=== PATIENT | male | born 1945 | race African-American/Black ===

== ENCOUNTER 2016-05-15 19:33 | Inpatient (IN) | payer MEDICARE ==
[2016-05-15] MEDS ORDERED: Sodium Chloride 0.9% 1,000 ML ONE (20:40)
[2016-05-15 20:44] LABS: Anion Gap 14 mmol/L (10-20); BUN (Urea Nitrogen) 17 mg/dL (8.4-25.7); Calc. Creatinine Clearance 0 mL/min (70-130); Calcium 9.5 mg/dL (7.8-10.44); Carbon Dioxide 23 mmol/L (23-31); Chloride 102 mmol/L (98-107); Estimated GFR-MDRD 85
--- NOTE | 2016-05-15 21:04 | RAD ---
PA AND LATERAL OF THE CHEST 05/15/16 INDICATION: Runny nose and cough with fever. IMPRESSION: Some limitation to the exam - see comments. No definite acute cardiopulmonary abnormality. Hyperexpansion of the lungs with interstitial prominence likely reflecting changes of COPD. Calcified granuloma of the right upper lobe. COMMENTS: There is surgical clips within the upper abdomen. Left costophrenic angle is excluded. POS: [id number]
[2016-05-15 21:13] LABS: Lactic Acid - Sepsis 1.9 mmol/L (0.5-2.2)
[2016-05-15 21:16] LABS: Hematocrit 40.4 % (42.0-52.0); Red Blood Cell (RBC) Count 4.99 mill/uL (4.70-6.10)
[2016-05-15 21:20] LABS: Band 1 % (5-11); Neutrophil 78 % (42-75)
[2016-05-15] MEDS ORDERED: Sodium Chloride 0.9% 100 ML ONE ×2 (21:22)
[2016-05-15] MEDS ORDERED: cefTRIAXone\\ROCEPHIN 1 GM VIAL ONE (21:22)
[2016-05-15 21:50] LABS: Bilirubin Negative (Negative); Blood, Urine Trace (Negative); Glucose, Urine (Dipstick) Negative (Negative); Ketone, Urine Negative (Negative); Nitrite Negative (Negative); Protein, Urine (Dipstick) Negative (Neg-Trace); Urobilinogen 0.2 mg/dL (0.2-1.0)
[2016-05-15 22:04] LABS: Bacteria/HPF None Seen HPF (None Seen); RBC/HPF None Seen HPF (0-3); Squamous Epithelial 0-3 HPF (0-3)
--- NOTE | 2016-05-15 22:35 | PICIS ---
[facility] EMERGENCY RECORD TRIAGE (19:44 MBOS) TRIAGE NOTES: fever, weakness. (19:44 MBOS) PATIENT: NAME: Hossein Velasco, AGE: 70, GENDER: male, : Tue1945, TIME OF GREET: Sat May 15, 2016 19:35, PREFERRED LANGUAGE: Chinese, ETHNICITY: Not or , ECODE BILLING MAP: [facility] ER, SSN: [id number], Zip Code: [address], KG WEIGHT: 68.04, PHONE: , , , PERSON ID: [id number], PCP: Tana IRWIN POLLACHI. (19:44 MBOS) COMPLAINT: WEAKNESS; FEVER. (19:44 MBOS) ADMISSION: URGENCY: 3 Urgent, ADMISSION SOURCE: Home, TRANSPORT: CAR, BED: ER -04. (19:44 MBOS) ASSESSMENT: Assessment: weakness x2 days, fever started today. (19:48 MBOS) PAIN: No complaint of pain. (19:48 MBOS) IMMUNIZATIONS: Flu vaccine not up to date, Tetanus not up to date, Pneumococcal vaccine not up to date. (19:48 MBOS) SIRS SCORING: Heart Rate 55-109 (0), Temp range 96.8-101.1 (0), respiratory rate 12-24 (0), Mental Status altered: no (0). (19:48 MBOS) PROVIDERS: TRIAGE NURSE: Carmelita Pozo RN. (19:44 MBOS) VITAL SIGNS: BP 96/57, Pulse 84, Resp 19, Temp 100.2, (Oral), Pain 0, O2 Sat 97, Time 05/15/2016 19:43. (19:43 MBOS) KNOWN ALLERGIES none CURRENT MEDICATIONS hydrochlorothiazide: TABLET : Strength - 12.5 mg : ORAL Patient Dose: Unknown. (22:15 MBOS) amlodipine-benazepril: CAPSULE : Strength - 5 mg-20 mg : ORAL Patient Dose: Unknown. (22:16 MBOS) ferrous sulfate: TABLET : Strength - 325 mg (65 mg iron) : ORAL Patient Dose: Unknown. (22:16 MBOS) atorvastatin: TABLET : Strength - 20 mg : ORAL Patient Dose: Unknown. (22:16 MBOS) clopidogrel: TABLET : Strength - 75 mg : ORAL Patient Dose: Unknown. (22:16 MBOS) VITAL SIGNS VITAL SIGNS: BP: 96/57, Pulse: 84, Resp: 19, Temp: 100.2 (Oral), Pain: 0, O2 sat: 97, Time: 05/15/2016 19:43. (19:43 MBOS) BP: 113/65, Pulse: 78, Resp: 12, O2 sat: 98 on Room Air, Time: 05/15/2016 20:24. (20:24 MBOS) &a-1R&a+25V*p+0X*[id number]*c202B*c15G*c2P*p-0X&a-25V&a+1R Name: Hossein Velasco : 1945 M70 MedRec: [id number] AcctNum: [id number] Prepared: Sat May 15, 2016 23:03 by Interface Page 1 of 12 pMD [facility] EMERGENCY RECORD BP: 107/58, Pulse: 69, Resp: 17, O2 sat: 98, Time: 05/15/2016 22:03. (22:03 MBOS) BP: 126/76, Pulse: 76, Resp: 15, Temp: 98.2 (Tympanic), Pain: 0, O2 sat: 95 on Room Air, Time: 05/15/2016 22:29. (22:29 MBOS) NURSING ASSESSMENT: FALL RISK (22:25 MBOS) FALL RISK: Impaired mobility (3), Elimination problems (3), Total score 6, Fall risk. NURSING ASSESSMENT: HEAD-TO-TOE (21:50 MBOS) CONSTITUTIONAL: Patient arrives, via hospital wheelchair, Unsteady gait, Assistance to cart, History obtained from patient, Patient appears comfortable, Patient cooperative, Patient alert, Oriented to person, place and time, Skin warm, Skin dry, Skin normal in color, Mucous membranes pink, Mucous membranes moist, Patient is well-groomed, Patient complains of fever, weakness. PAIN: Patient rates pain as 0 out of 10. NEURO: Pupils equally round and reactive to light, Able to close eyes, Face symmetrical, Speech normal. RESPIRATORY/CHEST: Breath sounds clear, Respiratory assessment findings include respiratory effort easy, Respirations regular, Conversing normally, Neck and chest exam findings include trachea midline, Chest expansion equal, Chest movement symmetrical, Associated with fever, Maximum temperature 104.7, oral. CARDIOVASCULAR: Cardiovascular assessment findings include heart rate normal, Heart sounds normal. SAFETY: Side rails up, Cart/Stretcher in lowest position, Family at bedside, Call light within reach, Hospital ID band on. NURSING ASSESSMENT: SKIN (22:23 MBOS) SKIN: Skin assessment findings include skin warm, Skin dry, Skin normal in color, Inspection findings include: No pressure ulcer to the shoulder, Inspection findings include no pressure ulcer to the elbow, Inspection findings include no pressure ulcers to the hip, Inspection findings include no pressure ulcer to the sacrum, Inspection findings include no pressure ulcer to the heel, Inspection findings include no pressure ulcer, Inspection findings include no pressure ulcer. SAFETY: Side rails up, Cart/Stretcher in lowest position, Family at bedside, Call light within reach, Hospital ID band on. NURSING PROCEDURE: ADMISSION (22:51 MBOS) ADMISSION: Patient admitted to a telemetry unit, room number 141, Report called to, DOMO Roblero, Provided opportunity to answer questions, Admission orders received and completed, Transported via cart/stretcher, Accompanied by registered nurse, Transported with disposable blood pressure cuff, Transported with saline lock. SAFETY: Side rails up, Cart/Stretcher in lowest position, Family &a-1R&a+25V*p+0X*[id number]*c202B*c15G*c2P*p-0X&a-25V&a+1R Name: Hossein Velasco : 1945 M70 MedRec: [id number] AcctNum: [id number] Prepared: Sat May 15, 2016 23:03 by Interface Page 2 of 12 pMD [facility] EMERGENCY RECORD at bedside, Call light within reach, Hospital ID band on. NURSING PROCEDURE: BEDSIDE SIRS TESTING (22:24 MBOS) SCORES: Heart Rate 55-109 (0), Temp range 96.8-101.1 (0), respiratory rate 12-24 (0), Latest WBC 3-14.9 (0), Mental Status altered: no (0), Yes, Infection or Suspected Infection. NURSING PROCEDURE: ASSOCIATE BROKER (19:45 MBOS) PATIENT IDENTIFIER: Patient actively involved in identification process, Patient's identity verified by patient stating name, Patient's identity verified by patient stating date, Patient's identity verified by hospital ID bracelet. ASSOCIATE BROKER: Cardiac monitoring indicated for weakness, fever, Patient placed on classroom monitor, with no ST segment changes, Patient placed on non-invasive blood pressure monitor, with disposable blood pressure cuff applied, Patient placed on continuous pulse oximetry, Adult/pediatric oxisensor applied, Oxygen saturation 99%. NURSING PROCEDURE: ENT (20:25 MBOS) PATIENT IDENTIFIER: Patient actively involved in identification process, Patient's identity verified by patient stating name, Patient's identity verified by patient stating date, Patient's identity verified by hospital ID bracelet. ENT: Nasal swab collected, labeled in the presence of the patient and sent to lab for testing of, influenza A, influenza B. SAFETY: Side rails up, Cart/Stretcher in lowest position, Family at bedside, Call light within reach, Hospital ID band on. NURSING PROCEDURE: IV (20:25 MBOS) PATIENT IDENITIFIER: Patient actively involved in identification process, Patient's identity verified by patient stating name, Patient's identity verified by patient stating date, Patient's identity verified by hospital ID bracelet. IV SITE 1: IV therapy indicated for hydration, IV therapy indicated for medication administration, IV established, to the right forearm, using a 20 gauge catheter, in two attempts, Saline lock established, Flushed with normal saline (mls): 10, Labs drawn at time of placement, labeled in the presence of the patient and sent to lab, Blood cultures drawn at time of placement, labeled in the presence of the patient and sent to lab. SAFETY: Side rails up, Cart/Stretcher in lowest position, Family at bedside, Call light within reach, Hospital ID band on. NURSING PROCEDURE: LAB DRAW (20:54 MBOS) PATIENT IDENTIFIER: Patient actively involved in identification process, Patient's identity verified by patient stating name, Patient's identity verified by patient stating date, Patient's identity verified by hospital ID bracelet, Patient's identity verified by family member. &a-1R&a+25V*p+0X*[id number]*c202B*c15G*c2P*p-0X&a-25V&a+1R Name: Hossein Velasco : 1945 M70 MedRec: [id number] AcctNum: [id number] Prepared: Sat May 15, 2016 23:03 by Interface Page 3 of 12 pMD [facility] EMERGENCY RECORD LAB DRAW: Initial lab draw performed, by venipuncture, from left forearm, in one attempt, Blood cultures labeled in the presence of the patient and sent to lab. SAFETY: Side rails up, Cart/Stretcher in lowest position, Family at bedside, Call light within reach, Hospital ID band on. NURSING PROCEDURE: NURSE NOTES NURSES NOTES: Patient in no apparent distress, Warm blanket given to patient, Notes: awaiting urine sample. (21:28 MBOS) Beverage given to patient. (21:59 MBOS) Patient in no apparent distress, Meal tray given to patient. (22:03 MBOS) VITAL SIGNS: BP: 107, / 58, Pulse: 69, Resp: 17, O2 sat: 98. (22:03 MBOS) NURSING PROCEDURE: TRANSPORT TO TESTS PATIENT IDENTIFIER: Patient actively involved in identification process, Patient's identity verified by patient stating name, Patient's identity verified by patient stating date, Patient's identity verified by hospital ID bracelet, Patient's identity verified by family member. (20:26 MBOS) TRANSPORT TO TESTS: Transport indicated to facilitate diagnosis, Patient transported to x-ray, via cart, Accompanied by x-ray mechanical technician. (20:26 MBOS) FOLLOW-UP: After procedure, patient returned to emergency department. (20:40 KHER) NURSING PROCEDURE: URINE COLLECTION (21:40 MBOS) PATIENT IDENTIFIER: Patient actively involved in identification process, Patient's identity verified by patient stating name, Patient's identity verified by patient stating date, Patient's identity verified by hospital ID bracelet. URINE COLLECTION MALE: Urine collection indicated for patient unable to void, Simple mcmahon inserted, using a 16 fr pre-connected catheter, in one attempt, output amount (mL) 50, urine yellow in color, and clear, Specimen labeled in the presence of the patient and sent to lab, Specimen obtained for culture labeled in the presence of the patient and sent to lab. SAFETY: Side rails up, Cart/Stretcher in lowest position, Family at bedside, Call light within reach, Hospital ID band on. ORDER DETAILS Order Name: Basic Metabolic Panel, Status: Active, Time: 20:13 05/15/2016, User: SROB, - Ordered for: MD Velasco Sam, - Entered by: MD Velasco Sam - [facility] May 15, 2016 20:13, - Quantity: 1, Order Name: CBC with Differential, Status: Active, Time: 20:13 05/15/2016, User: SROB, - Ordered for: MD Velasco Sam, &a-1R&a+25V*p+0X*[id number]*c202B*c15G*c2P*p-0X&a-25V&a+1R Name: Hossein Velasco : 1945 M70 MedRec: [id number] AcctNum: [id number] Prepared: Sat May 15, 2016 23:03 by Interface [address] [place] [address] EMERGENCY RECORD - Entered by: MD Velasco Sam - [facility] May 15, 2016 20:13, - Quantity: 1, Order Name: Culture, Blood, Status: Active, Time: 20:13 05/15/2016, User: SROB, - Ordered for: MD Velasco Sam, - Entered by: MD Velasco Sam - [facility] May 15, 2016 20:13, - Quantity: 1, Order Name: Culture, Urine, Status: Active, Time: 22:21 05/15/2016, User: SROB, - Ordered for: MD Velasco Sam, - Entered by: MD Velasco Sam - [facility] May 15, 2016 22:21, - Quantity: 1, Order Name: MCMAHON CATHETER ED, Status: Done, Time: 21:47 05/15/2016, User: MBOS, - Ordered for: MD Velasco Sam, - Entered by: MD Velasco Sam - [facility] May 15, 2016 21:30, - Quantity: 1, Order Name: Influenza A&B Ag Screen, Status: Active, Time: 20:13 05/15/2016, User: SROB, - Ordered for: MD Velasco Sam, - Entered by: MD Velasco Sam - [facility] May 15, 2016 20:13, - Quantity: 1, Order Name: Lactic Acid with repeat, Status: Active, Time: 20:13 05/15/2016, User: SROB, - Ordered for: MD Velasco Sam, - Entered by: MD Velasco Sam - Sat May 15, 2016 20:13, - Quantity: 1, Order Name: SALINE LOCK, Status: Done, Time: 20:21 05/15/2016, User: LHAL, - Ordered for: MD Velasco Sam, - Entered by: MD Velasco Sam - Sat May 15, 2016 20:13, - Quantity: 1, Order Name: Urinalysis w/ Rflx Microscopic, Status: Active, Time: 20:13 05/15/2016, User: TOMMIE, - Ordered for: MD Velasco Sam, - Entered by: MD Velasco Sam - Sat May 15, 2016 20:13, - Quantity: 1, Order Name: XR Chest Pa & Lat STANDARD, Status: Active, Time: 20:13 05/15/2016, User: TOMMIE, - Ordered for: MD Velasco Sam, - Entered by: MD Velasco Sam - Sat May 15, 2016 20:13, - Quantity: 1. MEDICATION ADMINISTRATION SUMMARY Drug Name: Rocephin intravenous, Dose Ordered: 1 g, Route: IV Piggy Back, Status: Given, Time: 21:43 05/15/2016, Drug Name: *sodium chloride 0.9 % intravenous, Dose Ordered: 1 L, Route: IV Fluid Infusion, Status: Given, Time: 20:48 05/15/2016, *Additional information available in notes, Detailed record available &a-1R&a+25V*p+0X*t5462T*c202B*c15G*c2P*p-0X&a-25V&a+1R Name: Hossein Velasco : 1945 M70 MedRec: [id number] AcctNum: [id number] Prepared: Sat May 15, 2016 23:03 by Interface Page 5 of 12 pMD [facility] EMERGENCY RECORD in Medication Service section. MEDICATION SERVICE Rocephin intravenous: Order: Rocephin intravenous (ceftriaxone sodium) - Dose: 1 g : IV Piggy Back Schedule: Now Ordered by: Otilio Velasco MD Entered by: Otilio Velasco MD Sat May 15, 2016 21:19 , Acknowledged by: Carmelita Pozo RN Sat May 15, 2016 21:21 Documented as given by: Carmelita Pozo RN Sat May 15, 2016 21:43 Patient, Medication, Dose, Route and Time verified prior to administration. IV SITE #1 IVPB or drip, initial infusion, IVPB mixed in: 100ml, Fluid: 0.9NS, on an IV pump, via secondary tubing, at 200 ml/hr, Awake and alert- acceptable, Catheter placement confirmed via flush prior to administration, IV site without signs or symptoms of infiltration during medication administration, No swelling during administration, No drainage during administration, IV flushed after administration, Correct patient, time, route, dose and medication confirmed prior to administration, Patient advised of actions and side-effects prior to administration, Allergies confirmed and medications reviewed prior to administration, Patient in position of comfort, Side rails up, Cart in lowest position, Family at bedside. : Follow Up : No signs or symptoms of allergic reaction noted, _IV SITE #1:_, Medication infusion discontinued, on Sat May 15, 2016 22:13, 30 minutes, ., Total amount infused: 100ml, IV Line flushed after administration, Advised not to ambulate without assistance, Patient in position of comfort, Side rails up, Cart in lowest position, Family at bedside. (22:13 MBOS) sodium chloride 0.9 % intravenous: Order: sodium chloride 0.9 % intravenous (0.9 % sodium chloride) - Dose: 1 L : IV Fluid Infusion Notes: (Bolus) Ordered by: Otilio Velasco MD Entered by: Otilio Velasco MD Sat May 15, 2016 20:26 , Acknowledged by: Carmelita Pozo RN Sat May 15, 2016 20:28 Documented as given by: Carmelita Pozo RN Sat May 15, 2016 20:48 Patient, Medication, Dose, Route and Time verified prior to administration. IV SITE #1 IV fluids established for hydration, IV SITE #1 into right forearm, IV SITE #1 1st bag hung, amount 1 Liter hung, IV SITE #1 bolus of 1000 ml established, via primary tubing, via pump tubing, IV SITE #1 on IV pump, Awake and alert- acceptable, Catheter placement confirmed via flush prior to administration, IV site without signs or symptoms of infiltration during medication administration, No swelling during administration, No drainage during administration, IV flushed after administration, Correct patient, time, route, dose and medication confirmed prior to administration, Patient advised of actions and side-effects prior to administration, Allergies confirmed and medications reviewed prior to administration, Patient in position &a-1R&a+25V*p+0X*[id number]*c202B*c15G*c2P*p-0X&a-25V&a+1R Name: Hossein Velasco : 1945 M70 MedRec: [id number] AcctNum: [id number] Prepared: Sat May 15, 2016 23:03 by Interface Page 6 of 12 pMD [facility] EMERGENCY RECORD of comfort, Side rails up, Cart in lowest position, Family at bedside. : Follow Up : No signs or symptoms of allergic reaction noted, _IV SITE #1:_, IV fluid infusion discontinued, on Sat May 15, 2016 22:20, Total fluid hydration time IV site 1 1 hour, 35 minutes, ., Total amount infused: 1000ml, IV Line flushed after administration, Advised not to ambulate without assistance, Patient in position of comfort, Side rails up, Cart in lowest position, Family at bedside. (22:20 MBOS) HPI FLU-LIKE SYNDROME (20:10 SROB) CHIEF COMPLAINT: Patient presents for evaluation of fatigue, Patient presents for evaluation of fever, Patient presents for evaluation of upper respiratory infection. HISTORIAN: History provided by patient, This 70 yo male had onset of runy nose and cough for 2 days and today began to feel chills and fever was measured at 104. He feels weak. LOCATION: No localizing symptoms. SEVERITY: Maximum severity of symptoms mild, Currently symptoms are mild. TIME COURSE: Gradual onset of symptoms, 2, days priror to arrival, Symptoms are worsening, since fever chills and weakness at 2 pm today. ASSOCIATED WITH: Associated with cough, non-productive. EXACERBATED BY: Patient's condition exacerbated by nothing. RELIEVED BY: Patient's condition relieved by over the counter medications, ibuprofen. IMMUNIZATION STATUS: Flu vaccine not up to date. ROS CONSTITUTIONAL: Historian reports chills, reports fatigue, reports fever, reports malaise, reports weakness. (20:15 SROB) EYES: Negative eye review of systems. (20:16 SROB) ENT: Historian reports rhinorrhea. (20:16 SROB) CARDIOVASCULAR: Negative cardiovascular review of systems. (20:16 SROB) RESPIRATORY: Historian reports cough. (20:16 SROB) GI: Negative gastrointestinal review of systems. (20:16 SROB) GENITOURINARY MALE: Negative genitourinary review of systems. (20:17 SROB) MUSCULOSKELETAL: Negative musculoskeletal review of systems. (20:17 SROB) SKIN: Negative skin review of systems. (20:17 SROB) NEUROLOGIC: Historian reports focal weakness, He had weakness of his left side with a TIA last week but is having weakness of right side toowith fever. (20:17 SROB) PAST MEDICAL HISTORY (19:48 MBOS) MEDICAL HISTORY: Flu vaccine not up to date, Tetanus not up to date, Pneumococcal vaccine not up to &a-1R&a+25V*p+0X*m5676X*c202B*c15G*c2P*p-0X&a-25V&a+1R Name: Hossein Velasco : 1945 M70 MedRec: [id number] AcctNum: [id number] Prepared: Sat May 15, 2016 23:03 by Interface Page 7 of 12 pMD [facility] EMERGENCY RECORD date, Past medical history includes history of hypertension, which has been treated, Past medical history includes neurological disease, ischemic cerebral vascular accident, transient ischemic attack. MALE SURGICAL HISTORY: Surgical history of orthopedic surgery, bilateral feet, bone spurs. PSYCHIATRIC HISTORY: No previous psychiatric history. SOCIAL HISTORY: Patient drinks socially, every week, Patient is a former drug user, abused marijuana, Patient currently uses tobacco, smokes cigarettes, Patient smokes 1/2 packs per day. PHYSICAL EXAM (20:18 SROB) CONSTITUTIONAL: Vital signs reviewed, Patient febrile, temperature of 100.2, Pulse normal, Blood pressure, hypotensive, Respiratory rate, increased. HEAD: Head exam normal. EYES: Eye exam normal. ENT: Ear exam normal, Nose exam included findings of, nasal discharge present, Pharynx exam normal, Uvula exam normal, Tonsil exam normal, Mouth exam normal. NECK: Neck exam normal, Neck exam included findings of normal range of motion, Trachea midline, no tenderness. RESPIRATORY CHEST: Respiratory and chest exam normal. CARDIOVASCULAR: Cardiovascular assessment normal. ABDOMEN MALE: Abdominal exam normal. BACK: Back exam normal, Back exam included findings of normal inspection, range of motion normal, no tenderness, no costovertebral angle tenderness. UPPER EXTREMITY: Upper extremity exam normal. LOWER EXTREMITY: Lower extremity exam normal. NEURO: Neuro exam normal. PSYCHIATRIC: Psychiatric exam normal. EVENTS TRANSFER: Triage to Emergency Emergency Room -04. (Sat May 15, 2016 19:44 MBOS) Removed from Emergency Emergency Room -04. (22:55 MBOS) RADIOLOGYINTERPRETATION (21:16 SROB) CHEST: Films of the chest show, chronic obstructive pulmonary disease, Other findings: RUL calcified granuloma. DOCTOR NOTES RE-EVALUATION: The patient's condition has improved, Patient is feeling better, but BPcontinues to trend on lower than normal levels,though not shocky. (22:27 SROB) CRITICAL CARE: Time spent providing critical care to patient &a-1R&a+25V*p+0X*q7645O*c202B*c15G*c2P*p-0X&a-25V&a+1R Name: Hossein Velasco : 1945 M70 MedRec: [id number] AcctNum: [id number] Prepared: Sat May 15, 2016 23:03 by Interface Page 8 of 12 pMD [facility] EMERGENCY RECORD was 30-74 minutes, 40 minutes. (22:27 SROB) D/W: Discussed this case with Dr. DR. Irby, the primary care physician. (22:29 SROB) PROBLEM LIST No recorded problems DIAGNOSIS FINAL: PRIMARY: Possible early sepsis, ADDITIONAL: upper respiratory infection, Viral syndrome. (22:19 SROB) PRIMARY: Possible early sepsis, ADDITIONAL: upper respiratory infection, UTI, Viral syndrome. (22:21 SROB) DISPOSITION PATIENT: Disposition Type: Admit, Disposition: [facility], Disposition Transport: Stretcher, Condition: Fair. (22:19 SROB) Patient left the department. (22:55 MBOS) PRESCRIPTION No recorded prescriptions IMAGING ADMISSION ORDERS: Image captured from scanner. (22:29 MBOS) *SUPPLY CHARGE SHEET: Image captured from scanner. (22:52 MBOS) ADMIN DIGITAL SIGNATURE: MD Velasco Sam. (22:19 SROB) MD Velasco Sam. (22:29 SROB) MD Velasco Sam. (22:30 SROB) RESULTS RADIOLOGY: XR Chest Pa & Lat STANDARD Observe DT: [facility] May 15, 2016 20:20, CXR2 PA AND LATERAL OF THE CHEST 05/15/16 INDICATION: Runny nose and cough with fever. IMPRESSION: Some limitation to the exam - see comments. No definite acute cardiopulmonary abnormality. Hyperexpansion of the lungs with interstitial prominence likely reflecting changes of COPD. Calcified granuloma of the right upper lobe. &a-1R&a+25V*p+0X*y4973H*c202B*c15G*c2P*p-0X&a-25V&a+1R Name: Hossein Velasco : 1945 M70 MedRec: [id number] AcctNum: [id number] Prepared: [facility] May 15, 2016 23:03 by Interface Page 9 of 12 pMD [facility] EMERGENCY RECORD COMMENTS: There is surgical clips within the upper abdomen. Left costophrenic angle is excluded. POS: [facility] . (21:11 SROB) LABORATORY: Basic Metabolic Panel Collection DT: [facility] May 15, 2016 20:24, Sodium 136 mmol/L, Range (136-145), *Potassium 3.4 - L mmol/L, Range (3.5-5.1), Chloride 102 mmol/L, Range (98-107), Carbon Dioxide 23 mmol/L, Range (23-31), Anion Gap 14 mmol/L, Range (10-20), BUN (Urea Nitrogen) 17 mg/dL, Range (8.4-25.7), Creatinine 1.05 mg/dL, Range (0.7-1.3), Estimated GFR-MDRD 85 , Reference Range for Estimated GFR: Greater than 90, mL/min/1.73 m2 NOTE: The MDRD equation has not been validated for use, with the elderly (over 70 years of age), women, patients with, serious comorbid condition or persons with extremes of body size, muscle, mass, or nutritional status. , *Glucose 120 - H mg/dL, Range (80-115), Calcium 9.5 mg/dL, Range (7.8-10.44). (21:05 SROB) Lactic Acid for Sepsis Collection DT: [facility] May 15, 2016 20:24, Lactic Acid - Sepsis 1.9 mmol/L, Range (0.5-2.2). (21:15 SROB) CBC with Differential Collection DT: Sat May 15, 2016 20:24, *White Blood Cell (WBC) Count 14.0 - H thou/uL, Range (4.8-10.8), Red Blood Cell (RBC) Count 4.99 mill/uL, Range (4.70-6.10), *Hemoglobin 13.4 - L g/dL, Range (14.0-18.0), *Hematocrit 40.4 - L %, Range (42.0-52.0), Mean Corpuscular Volume 80.9 fl, Range (80.0-94.0), *Mean Corpuscular Hemoglobin 26.9 - L pg, Range (27.0-31.0), Mean Corpuscular HGB CONC 33.3 g/dL, Range (32.0-36.0), RBC Distribution Width 12.5 %, Range (11.5-14.5), Platelet Count 272 thou/uL, Range (130-400), Mean Platelet Volume 8.0 fL, Range (7.4-10.4). (21:18 SROB) CBC with Differential Collection DT: Sat May 15, 2016 20:24, *White Blood Cell (WBC) Count 14.0 - H thou/uL, Range (4.8-10.8), Red Blood Cell (RBC) Count 4.99 mill/uL, Range (4.70-6.10), *Hemoglobin 13.4 - L g/dL, Range (14.0-18.0), *Hematocrit 40.4 - L %, Range (42.0-52.0), Mean Corpuscular Volume 80.9 fl, Range (80.0-94.0), *Mean Corpuscular Hemoglobin 26.9 - L pg, Range (27.0-31.0), Mean Corpuscular HGB CONC 33.3 g/dL, Range (32.0-36.0), RBC Distribution Width 12.5 %, Range (11.5-14.5), &a-1R&a+25V*p+0X*[id number]*c202B*c15G*c2P*p-0X&a-25V&a+1R Name: Hossein Velasco : 1945 M70 MedRec: [id number] AcctNum: [id number] Prepared: Sat May 15, 2016 23:03 by Interface Page 10 of 12 pMD [facility] EMERGENCY RECORD Platelet Count 272 thou/uL, Range (130-400), Mean Platelet Volume 8.0 fL, Range (7.4-10.4), *Neutrophil 78 - H %, Range (42-75), *Band 1 - L %, Range (5-11), *Lymphocytes 19 - L %, Range (21-51), Monocytes 1 %, Range (0-10), Eosinophils 1 %, Range (0-10), PLT Morphology Comment Appears Adequate , RBC Morphology Normal . (21:42 SROB) MICROBIOLOGY: Influenza A&B Ag Screen: [id number] Collection DT: Sat May 15, 2016 20:24, See comment below , @ ER ROOM#: [id number] Source: Nasopharyngeal wash Spec Desc: , Influenza A Antigen: NEGATIVE for the , presence of , INFLUENZA A Antigen , Influenza B Antigen: NEGATIVE for the , presence of , INFLUENZA B Antigen , The rapid Flu A&B test can distinguish between influenza A , Influenza A&B Ag Screen See comment below , and B viruses, but it does not differentiate influenza , Influenza A&B Ag Screen See comment below , subtypes. , Influenza A&B Ag Screen See comment below , Influenza A&B Ag Screen See comment below , Influenza A&B Ag Screen See comment below , Influenza A&B Ag Screen See comment below , characteristics of this device with human specimens infected , Influenza A&B Ag Screen See comment below , with the 2008 H1N1 influenza virus have not been , Influenza A&B Ag Screen See comment below , established. For example: this test cannot distinguish , Influenza A&B Ag Screen See comment below , influenza infections caused by novel H1N1 influenza A , Influenza A&B Ag Screen See comment below , viruses versus seasonal influenza A viruses. , Influenza A&B Ag Screen See comment below , , Influenza A&B Ag Screen See comment below , A negative result does not exclude influenza virus , Influenza A&B Ag Screen See comment below , infection; therefore, if more conclusive testing is desired, , Influenza A&B Ag Screen See comment below , follow up confirmatory testing is warranted., Influenza A&B Ag Screen See comment below . (21:47 SROB) LABORATORY: Urinalysis w/ Rflx Microscopic Collection DT: [facility] May 15, 2016 21:50, Color Yellow , Range (Yellow), Clarity Clear , Range (Clear), Specific [place], Urine 1.020 , Range (1.005-1.030), &a-1R&a+25V*p+0X*u3656H*c202B*c15G*c2P*p-0X&a-25V&a+1R Name: Hossein Velasco : 1945 M70 MedRec: [id number] AcctNum: [id number] Prepared: [facility] May 15, 2016 23:03 by Interface Page 11 of 12 pMD [facility] EMERGENCY RECORD pH, Urine 5.0 , Range (5.0-9.0), *Leukocyte Small - H , Range (Negative), Nitrite Negative , Range (Negative), Protein, Urine (Dipstick) Negative mg/dL, Range (Neg-Trace), Glucose, Urine (Dipstick) Negative mg/dL, Range (Negative), Ketone, Urine Negative mg/dL, Range (Negative), Urobilinogen 0.2 mg/dL, Range (0.2-1.0), Bilirubin Negative , Range (Negative), *Blood, Urine Trace - H , Range (Negative). (22:02 SROB) Urine Microscopic Collection DT: [facility] May 15, 2016 21:50, RBC/HPF None Seen HPF, Range (0-3), *WBC/HPF 4-6 - H HPF, Range (0-3), Squamous Epithelial 0-3 HPF, Range (0-3), Bacteria/HPF None Seen HPF, Range (None Seen). (22:20 SROB) Urinalysis w/ Rflx Microscopic Collection DT: [facility] May 15, 2016 21:50, Color Yellow , Range (Yellow), Clarity Clear , Range (Clear), Specific [place], Urine 1.020 , Range (1.005-1.030), pH, Urine 5.0 , Range (5.0-9.0), *Leukocyte Small - H , Range (Negative), Nitrite Negative , Range (Negative), Protein, Urine (Dipstick) Negative mg/dL, Range (Neg-Trace), Glucose, Urine (Dipstick) Negative mg/dL, Range (Negative), Ketone, Urine Negative mg/dL, Range (Negative), Urobilinogen 0.2 mg/dL, Range (0.2-1.0), Bilirubin Negative , Range (Negative), *Blood, Urine Trace - H , Range (Negative). (22:20 SROB) Cuadra: SALMA=CLAUDIA Michael Kayce MBOS=DOMO Pozo, Carmelita SROB=MD Rod, Otilio &a-1R&a+25V*p+0X*e8363B*c202B*c15G*c2P*p-0X&a-25V&a+1R Name: Hossein Velasco : 1945 M70 MedRec: [id number] AcctNum: [id number] Prepared: Varinder May 15, 2016 23:03 by Interface Page 12 of 12 pMD MTDD
[2016-05-15] MEDS ORDERED: Ondansetron ODT 4 MG TAB SL PRN (23:13)
[2016-05-15] MEDS ORDERED: Acetaminophen 325 MG TAB PO PRN (23:13)
[2016-05-15] MEDS ORDERED: Ondansetron HCl/PF 4 MG/2 ML Vial IVP PRN (23:13)
[2016-05-15] MEDS: Sodium Chloride 0.9% 1,000 ML IV SCH (23:50)
[2016-05-16 00:06] VITALS: BMI 22.3
[2016-05-16 05:46] LABS: Anion Gap 11 mmol/L (10-20); BUN (Urea Nitrogen) 16 mg/dL (8.4-25.7); Calc. Creatinine Clearance 78 mL/min (70-130); Carbon Dioxide 24 mmol/L (23-31); Chloride 107 mmol/L (98-107); Estimated GFR-MDRD Greater than 90
[2016-05-16] MEDS: Sodium Chloride 0.9% 1,000 ML IV SCH ×2 (05:51→07:27)
[2016-05-16 06:09] LABS: #Basophils 0.1 thou/uL (0.0-0.2); #Lymphocytes 2.6 thou/uL (1.20-3.40); #Monocytes 0.9 thou/uL (0.11-0.59); #Neutrophils 8.4 thou/uL (1.40-6.50); %Basophils 0.7 % (0.0-1.0); %Eosinophils 0.4 % (0.0-10.0); %Lymphocytes 21.5 % (21.0-51.0); %Monocytes 7.1 % (0.0-10.0); Hematocrit 34.7 % (42.0-52.0); Mean Platelet Volume 7.9 fL (7.4-10.4); Red Blood Cell (RBC) Count 4.25 mill/uL (4.70-6.10); White Blood Cell (WBC) Count 11.9 thou/uL (4.8-10.8)
[2016-05-16] MEDS ORDERED: Morphine Sulfate 2 MG/ML SYRINGE ONE (08:34)
[2016-05-16] MEDS ORDERED: FLU VACC QS2016-17 36MOS UP/PF 0.5 ML SYRINGE IM ONE (09:00)
[2016-05-16 10:22] VITALS: BP 114/64; TEMP 97.5
--- NOTE | 2016-05-16 14:59 | SS ---
DATE OF ADMISSION: 05/15/2016 DATE OF EXAMINATION: 05/16/2016 DATE OF DISCHARGE: 05/16/2016 PRINCIPAL DIAGNOSIS: Fever, most likely viral syndrome. SECONDARY DIAGNOSES: 1. Hypertension. 2. Dyslipidemia. 3. Recent cerebrovascular accident. 4. Anemia, iron deficiency. COMPLICATIONS: None. ADVERSE REACTIONS: None. PROCEDURES: None. CONSULTATIONS: None. HOSPITAL COURSE: The patient was admitted through the emergency room yesterday with a fever at home of 104; when he presented to the hospital, it was 102. His white count was elevated at 14,000, but his other workup was negative. His chest x-ray was normal, equal and was clear and there were no f ocal signs of infection. He was admitted overnight for observation and was given empiric Rocephin. He has remained afebrile and his laboratory values this morning shows a white count down to 11.9. Examination is essentially within normal limits except for some residual effects from his recent CVA . His nephew is in the room and I did discuss with his sister, who is the power of ip attorney over phone and explained to her about the findings and that this most likely is a viral infection, but given that he has had recent CVA and he did get one dose of Rocephin, I am not sure if it made any d ifference to his fever, so empirically I am going to put him on Ceftin 250 b.i.d. for 7 days. He is to continue his other medicines which is hydrochlorothiazide 12.5 mg daily, amlodipine/benazepril 5 /20 one pill daily, iron sulfate 325 daily, atorvastatin 20 mg daily, and Plavix 75 mg daily. He is to continue heart healthy diet. Activity as tolerated, aspiration precautions. He is to follow up in my office in a couple of weeks. I think he already has an appointment schedule. Family is to c all me with any questions or concerns, they have to bring him to the emergency room if he has any de terioration in his condition. PHYSICAL EXAMINATION: VITAL SIGNS: On the day of discharge, he is afebrile, blood pressure is 110/62, heart rate is 82, r espirations are 20, oxygen saturation is 96% on room air. CARDIOVASCULAR: S1, S2 plus. RESPIRATORY: Normal vesicular breath sounds. ABDOMEN: Soft, nontender, bowel sounds heard in all quadrants. EXTREMITIES: Without cyanosis or clubbing. Peripheral pulses are palpable. PAST SURGICAL HISTORY: Foot surgery for bone spurs. ALLERGIES: No known drug allergies. FAMILY HISTORY: Noncontributory to current admission. PSYCHOSOCIAL HISTORY: He does smoke. He is working on quitting. He also does like his alcohol. H e drinks 1-2 drinks a day. REVIEW OF SYSTEMS: Cardiovascular: Denies any chest pain, shortness of breath, palpitations, parox ysmal nocturnal dyspnea, orthopnea, pedal edema. Respiratory: Denies any chronic cough, expectorat ion or pleuritic type chest pain. Gastrointestinal: Denies any nausea, vomiting, diarrhea, constip ation, hematemesis, melena, hematochezia. Genitourinary: Denies any frequency, urgency, dysuria or hematuria. Central nervous system: Weakness from his recent CVA. No difficulty with swallowing, hearing, or vision per patient. For full details, please see chart. Prescription for Ceftin has be en written.
[2016-05-16] MEDS ORDERED: Ferrous Sulfate 325 MG TAB PO SCH (21:00)
[2016-05-16] MEDS ORDERED: Atorvastatin Calcium 10 MG TAB PO SCH (21:00)
[2016-05-16] MEDS ORDERED: Cefuroxime Axetil 250 MG TAB PO SCH (21:00)
[2016-05-17] MEDS ORDERED: Clopidogrel Bisulfate 75 MG TAB PO SCH (09:00)
[2016-05-17] MEDS ORDERED: Non-Formulary Item 1 EACH (Clopidogrel Bisulfate [Clopidogrel] 75 MG) PO SCH (09:00)
[2016-05-17] MEDS ORDERED: Non-Formulary Item 1 EACH (Amlodipine Besylate/Benazepril [Amlodipine Besylate/Benazepril PO SCH (09:00)
[2016-05-17] MEDS ORDERED: Non-Formulary Item 1 EACH (Hydrochlorothiazide [Hydrochlorothiazide] 12.5 MG) PO SCH (09:00)
[2016-05-17] MEDS ORDERED: Hydrochlorothiazide 25 MG TAB PO SCH (09:00)
== END 2016-05-16 13:15 | disposition home or self-care (01) | DRG 866 ==
LOC: NAV ERS 19:33 → NAV ACUTE 22:34
PROVIDERS: ADMIT Internal Medicine; ATTEND Internal Medicine
DX: B34.9 Viral infection, unspecified (principal); I69.354 Hemiplegia and hemiparesis following cerebral infarction affecting left non-dominant side; I10 Essential (primary) hypertension; E78.5 Hyperlipidemia, unspecified; D50.9 Iron deficiency anemia, unspecified; F17.210 Nicotine dependence, cigarettes, uncomplicated
CPT/HCPCS: 36415; 51702; 71020; 80048; 81003; 81015; 83605; 85025; 87040; 87086; 96361; 96365; A4216; J0696; J2270; J7050

== ENCOUNTER 2016-09-20 10:21 | Outpatient (CLI) | payer MEDICARE, BC ==
[2016-09-20 12:44] LABS: #Basophils 0.1 thou/uL (0.0-0.2); #Eosinphils 0.1 thou/uL (0.0-0.7); #Lymphocytes 1.8 thou/uL (1.20-3.40); #Monocytes 0.6 thou/uL (0.11-0.59); #Neutrophils 3.4 thou/uL (1.40-6.50); %Basophils 0.9 % (0.0-1.0); %Eosinophils 1.9 % (0.0-10.0); %Lymphocytes 30.6 % (21.0-51.0); %Monocytes 9.7 % (0.0-10.0); Hemoglobin 11.8 g/dL (14.0-18.0); Mean Corpuscular Hemoglobin 25.8 pg (27.0-31.0); Mean Corpuscular Volume 80.5 fl (80.0-94.0); Mean Platelet Volume 8.8 fL (7.4-10.4); Platelet Count 223 thou/uL (130-400); RBC Distribution Width 13.2 % (11.5-14.5); Red Blood Cell (RBC) Count 4.57 mill/uL (4.70-6.10)
== END 2016-09-20 10:22 ==
LOC: NAVSJIPCSP 10:21
PROVIDERS: ATTEND Internal Medicine
DX: Z12.11 Encounter for screening for malignant neoplasm of colon (principal); E78.5 Hyperlipidemia, unspecified
CPT/HCPCS: 36415; 80061; 85025

== ENCOUNTER 2016-12-27 10:34 | Outpatient (CLI) | payer MEDICARE, BC ==
[2016-12-27 12:58] LABS: ALT (SGPT) 8 U/L (8-55); AST (SGOT) 11 U/L (5-34); Albumin 3.4 g/dL (3.4-4.8); Alkaline Phosphatase 53 U/L (40-150); Anion Gap 12 mmol/L (10-20); BUN (Urea Nitrogen) 15 mg/dL (8.4-25.7); Bilirubin, Total 0.4 mg/dL (0.2-1.2); Calc. Creatinine Clearance 0 mL/min (70-130); Calcium 9.1 mg/dL (7.8-10.44); Carbon Dioxide 26 mmol/L (23-31); Cardiac Risk 3.1 (Less than 4.5); Chloride 107 mmol/L (98-107); Cholesterol 125 mg/dl (< 200 Desired); Estimated GFR-MDRD Greater than 90; Globulin 3.1 g/dL (2.4-3.5); Glucose 90 mg/dL (80-115); HDL Cholesterol 40 mg/dL (>60 Neg Risk); LDL Cholesterol, Calculated 71 mg/dL; Potassium 3.9 mmol/L (3.5-5.1); Protein, Total 6.5 g/dL (5.8-8.1); Sodium 141 mmol/L (136-145); Triglycerides 72 mg/dL (Less than 150)
[2016-12-27 13:34] LABS: PSA-Asymptomatic (SCREENING) 1.93 ng/mL (0-4.0)
[2016-12-27 13:44] LABS: #Basophils 0.1 thou/uL (0.0-0.2); #Eosinphils 0.1 thou/uL (0.0-0.7); #Lymphocytes 1.9 thou/uL (1.20-3.40); #Monocytes 0.5 thou/uL (0.11-0.59); #Neutrophils 3.1 thou/uL (1.40-6.50); %Basophils 1.2 % (0.0-1.0); %Eosinophils 1.5 % (0.0-10.0); %Lymphocytes 33.4 % (21.0-51.0); %Monocytes 8.4 % (0.0-10.0); %Neutrophils 55.5 % (42.0-75.0); Hemoglobin 10.9 g/dL (14.0-18.0); Mean Corpuscular HGB CONC 30.8 g/dL (32.0-36.0); Mean Corpuscular Hemoglobin 24.5 pg (27.0-31.0); Mean Corpuscular Volume 79.6 fl (80.0-94.0); Mean Platelet Volume 8.1 fL (7.4-10.4); Platelet Count 252 thou/uL (130-400); RBC Distribution Width 14.5 % (11.5-14.5); Red Blood Cell (RBC) Count 4.46 mill/uL (4.70-6.10); White Blood Cell (WBC) Count 5.6 thou/uL (4.8-10.8)
[2016-12-27 13:45] LABS: Anisocytosis SLIGHT = 6-15 cells (100X) (0-5/hpf); Hypochromia SLIGHT = 6-15 cells (100X) (0-5/hpf); MDiff Complete? YES; Ovalocytes SLIGHT = 2-5 cells (100X) (0-1/hpf); PLT Morphology Comment Appears Adequate
[2016-12-27 18:18] LABS: Hep C IgG Ab Non-Reactive (NonReactive); Hep C Index 0.18 S/CO (0-0.79)
== END 2016-12-27 10:35 | disposition home or self-care (01) ==
LOC: NAVSJIPCSP 10:34
PROVIDERS: ATTEND Internal Medicine
DX: Z12.5 Encounter for screening for malignant neoplasm of prostate (principal); E78.5 Hyperlipidemia, unspecified; I11.9 Hypertensive heart disease without heart failure; Z12.11 Encounter for screening for malignant neoplasm of colon; Z79.899 Other long term (current) drug therapy; Z72.89 Other problems related to lifestyle
CPT/HCPCS: 36415; 80053; 80061; 85025; 86803; G0103

== ENCOUNTER 2016-12-29 13:11 | Outpatient (CLI) | payer MEDICARE, BC ==
[2016-12-29 21:22] LABS: Bilirubin Negative (Negative); Blood, Urine Negative (Negative); Clarity Clear (Clear); Glucose, Urine (Dipstick) Negative (Negative); Leukocyte Negative (Negative); Nitrite Negative (Negative); Protein, Urine (Dipstick) Negative (Neg-Trace); Urobilinogen 0.2 mg/dL (0.2-1.0)
== END 2016-12-29 13:12 | disposition home or self-care (01) ==
LOC: NAVSJIPCSP 13:11
PROVIDERS: ATTEND Internal Medicine
DX: Z12.5 Encounter for screening for malignant neoplasm of prostate (principal); E78.5 Hyperlipidemia, unspecified; I11.9 Hypertensive heart disease without heart failure; Z12.11 Encounter for screening for malignant neoplasm of colon; Z79.899 Other long term (current) drug therapy
CPT/HCPCS: 81003; 82274

== ENCOUNTER 2018-02-13 17:19 | Outpatient (CLI) | payer MEDICARE, BC ==
--- NOTE | 2018-02-13 18:22 | RAD ---
ONE VIEW CHEST: LEFT RIBS GREATER THAN TWO VIEWS: FINDINGS: CHEST: Atherosclerosis and elongation of the aorta. Normal cardiac silhouette. Pulmonary vessels a nd hilum are normal. Costophrenic angles are clear. There is a linear opacity in the left lung base , likely representing atelectasis or scar. No pneumothorax. No evidence of a right rib fracture. RIBS: There is a fracture involving the anterolateral left 8th rib. No additional rib fractures are appreciated. IMPRESSION: 1. Atelectasis or scarring in the left lung base. 2. Anterolateral left 8th rib fracture. 3. No pneumothorax. POS: [facility]
== END 2018-02-13 17:20 | disposition home or self-care (01) ==
LOC: NAV RAD 17:19
PROVIDERS: ATTEND Internal Medicine
DX: R07.89 Other chest pain (principal); S22.32XA Fracture of one rib, left side, initial encounter for closed fracture

== ENCOUNTER 2021-12-25 12:56 | Emergency (ER) | payer MEDICARE ==
[2021-12-25] MEDS ORDERED: Sodium Chloride 0.9% 1,000 ML ONE ×2 (13:19→16:38)
[2021-12-25 13:36] LABS: #Lymphocytes 0.4 thou/uL (1.20-3.40); #Monocytes 0.4 thou/uL (0.11-0.59); #Neutrophils 11.9 thou/uL (1.40-6.50); %Basophils 0.1 % (0.0-1.0); %Lymphocytes 3.5 % (21.0-51.0); %Monocytes 3.3 % (0.0-10.0); %Neutrophils 93.1 % (42.0-75.0); Hemoglobin 14.3 g/dL (14.0-18.0); Mean Corpuscular Hemoglobin 24.5 pg (27.0-31.0); Mean Corpuscular Volume 81.7 fL (78.0-98.0); Platelet Count 379 thou/uL (130-400); RBC Distribution Width 15.4 % (11.5-14.5); Red Blood Cell (RBC) Count 5.85 mill/uL (4.70-6.10); White Blood Cell (WBC) Count 12.8 thou/uL (4.8-10.8)
[2021-12-25 13:42] LABS: ALT (SGPT) 22 U/L (8-55); AST (SGOT) 29 U/L (5-34); Albumin 3.7 g/dL (3.4-4.8); Alkaline Phosphatase 57 U/L (40-110); Anion Gap 22 mmol/L (10-20); BUN (Urea Nitrogen) 27 mg/dL (8.4-25.7); Bilirubin, Total 0.8 mg/dL (0.2-1.2); Calc. Creatinine Clearance 0 mL/min (70-130); Calcium 10.3 mg/dL (7.8-10.44); Carbon Dioxide 15 mmol/L (23-31); Chloride 98 mmol/L (98-107); Estimated GFR 78; Globulin 4.6 g/dL (2.4-3.5); Glucose 213 mg/dL (83-110); Potassium 5.2 mmol/L (3.5-5.1); Protein, Total 8.3 g/dL (5.8-8.1); Sodium 130 mmol/L (136-145)
[2021-12-25] MEDS ORDERED: Sodium Chloride 0.9% 100 ML ONE (14:03)
[2021-12-25] MEDS ORDERED: cefTRIAXone\\ROCEPHIN 2 GM VIAL ONE (14:03)
[2021-12-25 14:50] LABS: SARS-CoV-2 NAA Rapid Test Not Detected (NotDetected)
[2021-12-25] MEDS ORDERED: Acetaminophen 650 MG Suppository ONE (14:58)
[2021-12-25] MEDS ORDERED: Azithromycin 500 MG VIAL ONE (15:07)
[2021-12-25] MEDS ORDERED: Sodium Chloride 0.9% 250 ML 250 ML ONE (15:07)
[2021-12-25 15:14] LABS: Bilirubin Negative (Negative); Blood, Urine Negative (Negative); Glucose, Urine (Dipstick) Negative (Negative); Ketone, Urine Negative (Negative); Leukocyte Negative (Negative); Nitrite Negative (Negative); Protein, Urine (Dipstick) Negative (Neg-Trace); Specific Gravity, Urine 1.025 (1.005-1.030); Urobilinogen 0.2 mg/dL (Less than 2); pH, Urine 5.5 (5.0-9.0)
[2021-12-25 15:21] LABS: Clarity SL HAZY (Clear)
[2021-12-25] MEDS ORDERED: Sodium Chloride 0.9% 500 ML ONE (15:42)
[2021-12-25 16:19] LABS: Lactic Acid 2.4 mmol/L (0.5-2.2)
== END 2021-12-25 18:20 | disposition short-term general hospital (02) ==
LOC: NAV ERS 12:56
DX: A41.9 Sepsis, unspecified organism (principal); J18.9 Pneumonia, unspecified organism; I10 Essential (primary) hypertension; Z86.73 Personal history of transient ischemic attack (TIA), and cerebral infarction without residual deficits; Z20.822 Contact with and (suspected) exposure to COVID-19; Z79.899 Other long term (current) drug therapy; F17.210 Nicotine dependence, cigarettes, uncomplicated
CPT/HCPCS: 51701; 70450; 71045; 80053; 81003; 83605; 85025; 87040; 87077; 87086; 87804 ×2; 96361; 96365; 96367; 99285; U0002; 87186; J0456; J0696; J3490; J7030; J7050